=== PATIENT | male | born 1965 | race Two or more races ===

== ENCOUNTER 2017-08-08 08:39 | Emergency (ER) | payer MEDICAID, MEDICARE ==
[~2017-08-08] VITALS: Ht 160 cm; Wt 56.7 kg
[2017-08-08 09:44] VITALS: BP 14/92
== END 2017-08-08 11:16 | disposition home or self-care (01) ==
LOC: ER 08:39
DX: I12.0 Hypertensive chronic kidney disease with stage 5 chronic kidney disease or end stage renal disease (principal); E11.22 Type 2 diabetes mellitus with diabetic chronic kidney disease; N18.6 End stage renal disease; Z76.0 Encounter for issue of repeat prescription
CPT/HCPCS: 82962

== ENCOUNTER 2017-09-14 10:43 | Emergency (ER) | payer MEDICAID, MEDICARE ==
[~2017-09-14] VITALS: Ht 160 cm; Wt 59.0 kg
[2017-09-14 12:13] VITALS: BP 132/72
== END 2017-09-14 12:50 | disposition home or self-care (01) ==
LOC: ER 10:43
DX: I12.0 Hypertensive chronic kidney disease with stage 5 chronic kidney disease or end stage renal disease (principal); E11.22 Type 2 diabetes mellitus with diabetic chronic kidney disease; N18.6 End stage renal disease; Z76.0 Encounter for issue of repeat prescription
CPT/HCPCS: 82962

== ENCOUNTER 2017-11-01 13:27 | Observation (INO) | payer MEDICAID ==
[~2017-11-01] VITALS: Ht 160 cm; Wt 58.1 kg
[2017-11-01] MEDS ORDERED: DEXTROSE (50%) 50ML SYRG IV ONE (16:00)
[2017-11-01 16:16] LABS: Basophils # (auto) 0.1 uL; Basophils % (auto) 1.4 % (0.0-2.0); Eosinophils # (auto) 0.1 uL; Hemoglobin 12.6 g/dL (13.5-17.5); Lymphocytes # (auto) 1.3 uL; Mean Corpuscular Hemoglobin 32.8 pg (28.0-32.0); Mean Corpuscular Hgb Conc. 34.1 g/dL (32.0-36.0); Mean Corpuscular Volume 96.2 fL (80.0-100.0); Monocytes # (auto) 0.4 uL; Neutrophils # (auto) 4.9 uL; Neutrophils % (auto) 72.6 % (37.0-80.0); Platelet Count (auto) 171 10^3/uL (140-450); Red Blood Cells 3.84 10^6/uL (4.5-5.90); Red Cell Distribution Width 13.4 % (11.8-14.3); White Blood Cell 6.8 10^3/uL (4.4-10.8)
[2017-11-01 16:40] LABS: Alanine Aminotransferase 18 U/L (16-61); Albumin 4.2 g/dL (3.4-5.0); Alkaline Phosphatase 228 U/L (45-117); Anion Gap 8 (5-15); Aspartate Aminotransferase 13 U/L (15-37); BUN/Creatinine Ratio 5.3; Bilirubin, Total 0.5 mg/dL (0.2-1.0); Blood Urea Nitrogen 37 mg/dL (7-18); Calcium 9.5 mg/dL (8.5-10.1); Carbon Dioxide 25 mmol/L (21-32); Chloride 107 mmol/L (98-107); GFR African American 11 mL/min; GFR Non-African American 9 mL/min; Glucose 50 mg/dL (74-106); Magnesium 2.9 mg/dL (1.6-2.6); Potassium 4.6 mmol/L (3.5-5.1); Sodium 140 mmol/L (136-145)
[2017-11-01 19:45] VITALS: BP 167/91
== END 2017-11-01 20:43 | disposition home or self-care (01) | DRG 420 ==
LOC: ER 13:27 → OVERFLOW 15:58 → ER 20:43
PROVIDERS: ADMIT Family Medicine; ATTEND Family Medicine
DX: E11.649 Type 2 diabetes mellitus with hypoglycemia without coma (principal); I12.0 Hypertensive chronic kidney disease with stage 5 chronic kidney disease or end stage renal disease; E11.22 Type 2 diabetes mellitus with diabetic chronic kidney disease; N18.6 End stage renal disease; Z99.2 Dependence on renal dialysis
CPT/HCPCS: 36415; 71045; 80053; 82962; 83735; 84484; 85025; 99285; G0378; J7042

== ENCOUNTER 2022-02-28 18:32 | Emergency (ER) | payer MEDICARE, MEDICAID ==
[~2022-02-28] VITALS: Ht 160 cm; Wt 52.0 kg
[2022-02-28 21:07] LABS: Basophils # (auto) 0 10 ^3/uL (0-0.2); Eosinophils # (auto) 0.2 10 ^3/uL (0-0.8); Eosinophils % (auto) 5.7 % (0.0-7.0); Hematocrit 33.8 % (41.0-53.0); Lymphocytes # (auto) 0.8 10 ^3/uL (0.4-5.4); Lymphocytes % (auto) 25.9 % (10.0-50.0); Mean Corpuscular Hemoglobin 31.6 pg (28.0-32.0); Mean Corpuscular Hgb Conc. 32.7 g/dL (32.0-36.0); Mean Corpuscular Volume 96.6 fL (80.0-100.0); Monocytes # (auto) 0.4 10 ^3/uL (0-1.3); Monocytes % (auto) 13.2 % (0.0-12.0); Neutrophils # (auto) 1.6 10 ^3/uL (1.6-8.6); Neutrophils % (auto) 54.2 % (37.0-80.0); Nucleated Red Blood Cells % 0.1 %; Red Cell Distribution Width 16.7 % (11.8-14.3)
[2022-02-28 21:14] LABS: Albumin 3.8 g/dL (3.4-5.0); Calcium 8.1 mg/dL (8.5-10.1); Potassium 4.9 mmol/L (3.5-5.1)
[2022-02-28 21:20] LABS: BUN/Creatinine Ratio 6.1; Bilirubin, Total 0.6 mg/dL (0.2-1.0); Total Protein 6.8 g/dL (6.4-8.2)
[2022-02-28 23:41] VITALS: BP 177/77
== END 2022-03-01 00:43 | disposition home or self-care (01) ==
LOC: ER 18:36
DX: I12.0 Hypertensive chronic kidney disease with stage 5 chronic kidney disease or end stage renal disease (principal); E11.22 Type 2 diabetes mellitus with diabetic chronic kidney disease; N18.6 End stage renal disease
CPT/HCPCS: 36415; 71045; 80053; 84484; 85025; 93005

== ENCOUNTER 2022-04-03 18:30 | Inpatient (IN) | payer MEDICARE, MEDICAID ==
[~2022-04-03] VITALS: Ht 160 cm; Wt 55.6 kg
[2022-04-03 20:09] LABS: Basophils # (auto) 0 10 ^3/uL (0-0.2); Basophils % (auto) 0.7 % (0.0-2.0); Eosinophils # (auto) 0.1 10 ^3/uL (0-0.8); Eosinophils % (auto) 4.7 % (0.0-7.0); Hematocrit 35.4 % (41.0-53.0); Hemoglobin 11.9 g/dL (13.5-17.5); Lymphocytes # (auto) 0.8 10 ^3/uL (0.4-5.4); Lymphocytes % (auto) 27.7 % (10.0-50.0); Mean Corpuscular Hemoglobin 31.7 pg (28.0-32.0); Mean Corpuscular Hgb Conc. 33.5 g/dL (32.0-36.0); Mean Corpuscular Volume 94.5 fL (80.0-100.0); Monocytes # (auto) 0.3 10 ^3/uL (0-1.3); Monocytes % (auto) 11.5 % (0.0-12.0); Neutrophils # (auto) 1.6 10 ^3/uL (1.6-8.6); Neutrophils % (auto) 55.4 % (37.0-80.0); Nucleated Red Blood Cells % 0.1 %; Red Blood Cells 3.74 10^6/uL (4.5-5.90); Red Cell Distribution Width 15.5 % (11.8-14.3); White Blood Cell 2.9 10^3/uL (4.4-10.8)
[2022-04-03 20:22] LABS: Albumin 3.9 g/dL (3.4-5.0); Calcium 8.1 mg/dL (8.5-10.1)
[2022-04-03 20:28] LABS: BUN/Creatinine Ratio 7.3; Bilirubin, Total 0.7 mg/dL (0.2-1.0)
[2022-04-03 20:32] LABS: Potassium 5.7 mmol/L (3.5-5.1)
[2022-04-04] MEDS ORDERED: ACETAMINOPHEN 325 MG TAB PO PRN (05:30)
[2022-04-04] MEDS ORDERED: MORPHINE SULFATE INJ 2 MG/ml SYRG IV PRN (05:30)
[2022-04-04] MEDS ORDERED: hydrALAZINE HCL 20 MG/ML VL IV ONE (05:30)
[2022-04-04] MEDS ORDERED: TEMAZEPAM 15 MG CAP PO PRN (05:30)
[2022-04-04] MEDS ORDERED: NITROGLYCERIN 0.4 MG SL TAB SL PRN (05:30)
[2022-04-04] MEDS ORDERED: ONDANSETRON HCL 4 MG/2 ML VIAL IV PRN (05:30)
[2022-04-04] MEDS: cloNIDine HCL 0.1 MG TAB PO PRN ×2 (07:05→18:15)
[2022-04-04 07:18] LABS: Basophils # (auto) 0 10 ^3/uL (0-0.2); Basophils % (auto) 0.9 % (0.0-2.0); Eosinophils # (auto) 0.2 10 ^3/uL (0-0.8); Eosinophils % (auto) 6.3 % (0.0-7.0); Hematocrit 36.1 % (41.0-53.0); Hemoglobin 12.3 g/dL (13.5-17.5); Lymphocytes # (auto) 0.8 10 ^3/uL (0.4-5.4); Lymphocytes % (auto) 30.7 % (10.0-50.0); Mean Corpuscular Hemoglobin 32.1 pg (28.0-32.0); Mean Corpuscular Hgb Conc. 34.1 g/dL (32.0-36.0); Mean Corpuscular Volume 94.2 fL (80.0-100.0); Monocytes # (auto) 0.3 10 ^3/uL (0-1.3); Neutrophils # (auto) 1.4 10 ^3/uL (1.6-8.6); Neutrophils % (auto) 52.1 % (37.0-80.0); Red Blood Cells 3.83 10^6/uL (4.5-5.90); Red Cell Distribution Width 15.2 % (11.8-14.3); White Blood Cell 2.7 10^3/uL (4.4-10.8)
[2022-04-04 07:36] LABS: Albumin 3.5 g/dL (3.4-5.0); Potassium 5.2 mmol/L (3.5-5.1)
[2022-04-04 07:40] LABS: BUN/Creatinine Ratio 7.5; Bilirubin, Total 0.6 mg/dL (0.2-1.0); Total Protein 6.7 g/dL (6.4-8.2)
[2022-04-04] MEDS ORDERED: SODIUM CHL 0.9% 1000 ML BAG XX ONE (09:15)
[2022-04-04] MEDS: CALCIUM ACETATE 667 MG CAP PO SCH ×2 (14:00→18:14)
[2022-04-04] MEDS: CARVEDILOL 3.125 MG TAB PO SCH ×2 (14:01→21:41)
[2022-04-04] MEDS: amLODIPine BESYLATE 5 MG TAB PO SCH (14:02)
[2022-04-04] MEDS: LISINOPRIL 20 MG TAB PO SCH (16:59)
[2022-04-04] MEDS ORDERED: EPOETIN ALFA-EPBX 10,000 UNIT/1ML VIAL SC ONE (21:00)
[2022-04-04 22:23] VITALS: BP 164/73
[2022-04-04] MEDS ORDERED: AML5T PO (23:42)
[2022-04-04] MEDS ORDERED: CARV3.1240 PO (23:42)
[2022-04-05 05:00] VITALS: BP 158/73
[2022-04-05 05:17] LABS: Basophils # (auto) 0 10 ^3/uL (0-0.2); Basophils % (auto) 0.5 % (0.0-2.0); Eosinophils # (auto) 0 10 ^3/uL (0-0.8); Eosinophils % (auto) 1.8 % (0.0-7.0); Hematocrit 34.1 % (41.0-53.0); Hemoglobin 11.6 g/dL (13.5-17.5); Lymphocytes # (auto) 0.8 10 ^3/uL (0.4-5.4); Lymphocytes % (auto) 30.4 % (10.0-50.0); Mean Corpuscular Hemoglobin 32.1 pg (28.0-32.0); Mean Corpuscular Hgb Conc. 33.9 g/dL (32.0-36.0); Mean Corpuscular Volume 94.7 fL (80.0-100.0); Monocytes # (auto) 0.3 10 ^3/uL (0-1.3); Monocytes % (auto) 11.8 % (0.0-12.0); Neutrophils # (auto) 1.5 10 ^3/uL (1.6-8.6); Neutrophils % (auto) 55.5 % (37.0-80.0); Nucleated Red Blood Cells % 0.2 %; Red Cell Distribution Width 15.5 % (11.8-14.3); White Blood Cell 2.6 10^3/uL (4.4-10.8)
[2022-04-05 05:35] LABS: Potassium 4.7 mmol/L (3.5-5.1)
[2022-04-05 05:37] LABS: Albumin 3.3 g/dL (3.4-5.0); BUN/Creatinine Ratio 7.5; Calcium 7.7 mg/dL (8.5-10.1)
[2022-04-05 05:43] LABS: Bilirubin, Total 0.5 mg/dL (0.2-1.0); Total Protein 5.9 g/dL (6.4-8.2)
[2022-04-05] MEDS: cloNIDine HCL 0.1 MG TAB PO PRN ×2 (07:12→07:13)
[2022-04-05 09:00] VITALS: BP 162/73
[2022-04-05] MEDS: CALCIUM ACETATE 667 MG CAP PO SCH ×3 (09:29→18:26)
[2022-04-05] MEDS: amLODIPine BESYLATE 5 MG TAB PO SCH (09:30)
[2022-04-05] MEDS: CARVEDILOL 3.125 MG TAB PO SCH ×2 (09:30→22:54)
[2022-04-05] MEDS: LISINOPRIL 20 MG TAB PO SCH (09:31)
[2022-04-05] MEDS ORDERED: CARV6.2551 PO (11:44)
[2022-04-05] MEDS ORDERED: PATI1POW PO (11:44)
[2022-04-05] MEDS ORDERED: AMLO-496 PO (11:44)
[2022-04-05] MEDS ORDERED: LINA5TAB PO (11:44)
[2022-04-05] MEDS ORDERED: hydrALAZINE HCL 20 MG/ML VL IV ONE (12:30)
[2022-04-05] MEDS ORDERED: hydrALAZINE HCL 25 MG TAB PO ONE (12:45)
[2022-04-05 13:00] VITALS: BP 165/72
[2022-04-05 17:00] VITALS: BP 153/70
[2022-04-05 22:00] VITALS: BP 161/71
[2022-04-06 05:00] VITALS: BP 165/73
[2022-04-06] MEDS: cloNIDine HCL 0.1 MG TAB PO PRN (05:20)
[2022-04-06 06:10] LABS: BUN/Creatinine Ratio 7.5; Calcium 7.6 mg/dL (8.5-10.1); Potassium 5.3 mmol/L (3.5-5.1)
[2022-04-06] MEDS ORDERED: SODIUM CHL 0.9% 1000 ML BAG XX ONE (07:00)
[2022-04-06] MEDS: CALCIUM ACETATE 667 MG CAP PO SCH ×3 (08:29→18:41)
[2022-04-06 09:00] VITALS: BP 160/71
[2022-04-06] MEDS ORDERED: ISOSORBIDE MONONITRATE ER 60 MG TAB PO SCH (10:00)
[2022-04-06] MEDS: amLODIPine BESYLATE 5 MG TAB PO SCH (10:25)
[2022-04-06] MEDS: LISINOPRIL 20 MG TAB PO SCH (10:26)
[2022-04-06] MEDS: CARVEDILOL 3.125 MG TAB PO SCH (10:26)
[2022-04-06 13:00] VITALS: BP 119/93
[2022-04-06 16:38] VITALS: BP 158/76
[2022-04-06 18:19] VITALS: BP 158/76
== END 2022-04-06 20:55 | disposition home or self-care (01) | DRG 304 ==
LOC: ER 18:32 → TELE 04-04 05:24 → TELE-WESTW 04-04 21:26
PROVIDERS: ADMIT Nurse Practitioner; ATTEND Internal Medicine
PROC: 5A1D70Z Performance of Urinary Filtration, Intermittent, Less than 6 Hours Per Day (ICD-10-PCS; 2022-04-04)
PROC: 5A1D70Z Performance of Urinary Filtration, Intermittent, Less than 6 Hours Per Day (ICD-10-PCS; principal; 2022-04-06)
DX: I16.1 Hypertensive emergency (principal); N18.6 End stage renal disease; E87.1 Hypo-osmolality and hyponatremia; E87.20 Acidosis, unspecified; E87.5 Hyperkalemia; H54.62 Unqualified visual loss, left eye, normal vision right eye; E11.22 Type 2 diabetes mellitus with diabetic chronic kidney disease; I12.0 Hypertensive chronic kidney disease with stage 5 chronic kidney disease or end stage renal disease; Z20.822 Contact with and (suspected) exposure to COVID-19; Z99.2 Dependence on renal dialysis
CPT/HCPCS: 36415; 71045; 80048; 80053; 83036; 84443; 84484; 85025; 90935; 93005; 93306; G0378